=== PATIENT | female | born 1955 | race Caucasian/White ===

== ENCOUNTER → 2016-06-07 | Outpatient (CLI) | payer MEDICARE, OTHER ==
--- NOTE | 2016-06-11 08:45 | MM ---
Reason for exam: screening (asymptomatic). Last mammogram was performed 1 year ago. History: Patient is postmenopausal and is nulliparous. Family history of breast cancer in grandmother at age 80. Benign US biopsy breast VAD LT of the left breast, August 24, 2014. Benign MG pre op needle loc LT of the left breast, June 24, 2013. Benign excisional biopsy of the right breast, July 11, 1998. Took hormonal contraceptives for 20 years 8 months beginning at age 30. Taking estrogen for 1 year. Taking progesterone for 1 year. Physical Findings: A clinical breast exam by your physician is recommended on an annual basis and results should be correlated with mammographic findings. MG Screening Mammo w CAD Bilateral CC, MLO, and XCCL view(s) were taken. Prior study comparison: June 07, 2015, bilateral MG screening mammo w CAD. There are scattered fibroglandular densities. Previous mammotome biopsy within the right breast. No significant changes when compared with prior studies. ASSESSMENT: Benign, BI-RAD 2 RECOMMENDATION: Routine screening mammogram of both breasts in 1 year.
== END | disposition home or self-care (01) ==
LOC: RADMAMWWP 10:17
PROVIDERS: ATTEND Family Medicine
DX: Z12.31 Encounter for screening mammogram for malignant neoplasm of breast (principal)

== ENCOUNTER → 2017-08-01 | Outpatient (CLI) | payer MEDICARE, OTHER ==
--- NOTE | 2017-08-05 08:02 | MM ---
Reason for exam: screening (asymptomatic). Last mammogram was performed 1 year and 2 months ago. History: Patient is postmenopausal and is nulliparous. Family history of breast cancer in grandmother at age 80. Benign US biopsy breast VAD LT of the left breast, August 24, 2014. Benign MG pre op needle loc LT of the left breast, June 24, 2013. Benign excisional biopsy of the right breast, July 11, 1998. Took hormonal contraceptives for 20 years 8 months beginning at age 30. Taking estrogen for 1 year. Taking progesterone for 1 year. Physical Findings: A clinical breast exam by your physician is recommended on an annual basis and results should be correlated with mammographic findings. MG 3D Screening Mammo W/Cad Bilateral CC and MLO view(s) were taken. Prior study comparison: June 07, 2016, bilateral MG screening mammo w CAD. June 07, 2015, bilateral MG screening mammo w CAD. The breast tissue is heterogeneously dense. This may lower the sensitivity of mammography. Previous mammotome biopsy in the right breast. No significant changes when compared with prior studies. ASSESSMENT: Benign, BI-RAD 2 RECOMMENDATION: Routine screening mammogram of both breasts in 1 year.
== END | disposition home or self-care (01) ==
LOC: RADMAMWWP 07:56
PROVIDERS: ATTEND Family Medicine
DX: Z12.31 Encounter for screening mammogram for malignant neoplasm of breast (principal)
CPT/HCPCS: 77063; 77067

== ENCOUNTER 2017-12-11 10:54 | Emergency (ER) | payer MEDICARE, OTHER ==
[2017-12-11 11:29] VITALS: BP 102/53; PULSE 76; TEMP 98.5
--- NOTE | 2017-12-11 11:46 | ED ---
General Adult HPI - General Chief complaint: Fever Stated complaint: poss pneumo, sent by [facility] Source: family Mode of arrival: wheelchair Limitations: no limitations - History of Present Illness Initial comments: Dictation was produced using [employer] dictation software. please excuse any grammatical, word or spelling errors. Chief Complaint: 62-year-old female comes from a correction for fever, cough. History of Present Illness: Patient is a 62-year-old female who presents with persistent cough. She completed a 5 day course of azithromycin last week. She presents today with home staff states that she's been coughing persistently. She has been spiking temperatures as well with attempt of 11 yesterday. Patient has a history of cerebral palsy and mental retardation. Patient unable to H med this time secondary to mental status. Patient's care is usually done as obtained from staff. The correction tech does not know the details of her symptoms. They were at an express today when they sent her to emergency room for further workup. [facility] tech says that she has not been drinking fluids recently however will eat when she is given a burger. Unable to obtain ROS either mental status. - Related Data Home Medications Medication Instructions Recorded Confirmed Cholecalciferol [Vitamin D3] 400 unit PO DAILY 06/23/13 12/11/17 Levothyroxine Sodium [Synthroid] 75 mcg PO QAM 06/23/13 12/11/17 QUEtiapine [SEROquel] 100 mg PO BID@0730,1930 06/23/13 12/11/17 Vilazodone HCl [Viibryd] 20 mg PO DAILY 06/23/13 12/11/17 Vitamin B Complex 1 cap PO DAILY@0730 06/23/13 12/11/17 cloNIDine HCL [Catapres] 0.1 mg PO TID@0730,1200,1600 06/23/13 12/11/17 traZODone HCL [Desyrel] 200 mg PO HS@0 06/23/13 12/11/17 Latanoprost/Pf [Latanoprost 0.005% 1 drop BOTH EYES DAILY@1500 12/11/17 12/11/17 Eye Drop] Loratadine [Claritin] 10 mg PO DAILY@1930 12/11/17 12/11/17 Metoprolol Tartrate [Lopressor] 50 mg PO HS 12/11/17 12/11/17 Previous Rx's Medication Instructions Recorded Sulfamethox-Tmp 800-160Mg [Bactrim 1 tab PO Q12HR 14 Days #28 tab 12/11/17 DS 800-160 mg] Allergies Allergy/AdvReac Type Severity Reaction Status Date / Time grass pollen Allergy Unknown Verified 12/11/17 12:09 losartan Allergy Swelling Verified 12/11/17 12:09 Review of Systems ROS Statement: Those systems with pertinent positive or pertinent negative responses have been documented in the HPI. ROS Other: All systems not noted in ROS Statement are negative. Past Medical History Past Medical History: Musculoskeletal Disorder Additional Past Medical History / Comment(s): CEREBRAL PALSY History of Any Multi-Drug Resistant Organisms: None Reported Past Surgical History: Orthopedic Surgery Additional Past Surgical History / Comment(s): FX OF LEFT FEMUR Past Anesthesia/Blood Transfusion Reactions: No Reported Reaction Past Psychological History: Anxiety Smoking Status: Never smoker Past Alcohol Use History: None Reported Past Drug Use History: None Reported General Exam - General Exam Comments Initial Comments: PHYSICAL EXAM: General Impression: Alert, not in acute distress HEENT: Normocephalic atraumatic, extra-ocular movements intact, pupils equal and reactive to light bilaterally, mucous membranes moist. Cardiovascular: Heart regular rate and rhythm, S1&S2 audible, no murmurs, rubs or gallops Chest: Lungs clear to auscultation bilaterally, no rhonchi, no wheeze, no rales Abdomen: Bowel sounds present, abdomen soft, non-tender, non-distended, no organomegaly Musculoskeletal: Pulses present and equal in all extremities, no peripheral edema Neurological: no focal motor or sensory deficits noted Skin: Intact with no visualized rashes Limitations: no limitations Course Vital Signs 12/11/17 12/11/17 11:23 12:12 Temperature 98.5 F Pulse Rate 76 Respiratory 18 16 Rate Blood Pressure 102/53 O2 Sat by Pulse 95 Oximetry Medical Decision Making - Medical Decision Making ED course: 62-year-old female past medical history of mental retardation, cerebral palsy presents with persistent cough after complaining course of azithromycin and steroids. Signs upon arrival are within acceptable limits. Patient is well-appearing.Laboratory evaluation obtained. CBC unremarkable. Metabolic panel is unremarkable. Urinalysis shows findings to suggest urinary tract infection. Urine sent for culture. Repeat vital signs are obtained showing stable measurements. There is some clinical suspicion that patient's symptoms represent pyelonephritis however patient is afebrile here and likely her urine results represent cystitis. Patient is well- appearing and correction staff member says she appears baseline. Patient urine studies were reviewed by myself she has had Morganella in the past that was sensitive to Bactrim. Patient be given a course of Bactrim. - Lab Data Result diagrams: 12/11/17 12:16 12/11/17 12:16 Lab Results 12/11/17 12/11/17 12/11/17 Range/Units 12:16 12:16 12:16 WBC 9.9 (3.8-10.6) k/uL RBC 4.74 (3.80-5.40) m/uL Hgb 15.2 (11.4-16.0) gm/dL Hct 46.2 H (34.0-46.0) % MCV 97.4 (80.0-100.0) fL MCH 32.1 (25.0-35.0) pg MCHC 33.0 (31.0-37.0) g/dL RDW 12.2 (11.5-15.5) % Plt Count 238 (150-450) k/uL Neutrophils % 65 % Lymphocytes % 25 % Monocytes % 5 % Eosinophils % 2 % Basophils % 0 % Neutrophils # 6.5 (1.3-7.7) k/uL Lymphocytes # 2.5 (1.0-4.8) k/uL Monocytes # 0.5 (0-1.0) k/uL Eosinophils # 0.2 (0-0.7) k/uL Basophils # 0.0 (0-0.2) k/uL Sodium 141 (137-145) mmol/L Potassium 4.3 (3.5-5.1) mmol/L Chloride 108 H (98-107) mmol/L Carbon Dioxide 27 (22-30) mmol/L Anion Gap 6 mmol/L BUN 17 (7-17) mg/dL Creatinine 0.50 L (0.52-1.04) mg/dL Est GFR (CKD-EPI)AfAm >90 (>60 ml/min/1.73 sqM) Est GFR (CKD-EPI)NonAf >90 (>60 ml/min/1.73 sqM) Glucose 84 (74-99) mg/dL Plasma Lactic Acid Yordan 1.5 (0.7-2.0) mmol/L Calcium 10.3 H (8.4-10.2) mg/dL Total Bilirubin 0.7 (0.2-1.3) mg/dL AST 25 (14-36) U/L ALT 28 (9-52) U/L Alkaline Phosphatase 84 (38-126) U/L Total Protein 6.5 (6.3-8.2) g/dL Albumin 3.8 (3.5-5.0) g/dL Urine Color Urine Appearance (Clear) Urine pH (5.0-8.0) Ur Specific [place] (1.001-1.035) Urine Protein (Negative) Urine Glucose (UA) (Negative) Urine Ketones (Negative) Urine Blood (Negative) Urine Nitrite (Negative) Urine Bilirubin (Negative) Urine Urobilinogen (<2.0) mg/dL Ur Leukocyte Esterase (Negative) Urine RBC (0-5) /hpf Urine WBC (0-5) /hpf Ur Squamous Epith Cells (0-4) /hpf Urine Bacteria (None) /hpf Urine Mucus (None) /hpf 12/11/17 Range/Units 13:19 WBC (3.8-10.6) k/uL RBC (3.80-5.40) m/uL Hgb (11.4-16.0) gm/dL Hct (34.0-46.0) % MCV (80.0-100.0) fL MCH (25.0-35.0) pg MCHC (31.0-37.0) g/dL RDW (11.5-15.5) % Plt Count (150-450) k/uL Neutrophils % % Lymphocytes % % Monocytes % % Eosinophils % % Basophils % % Neutrophils # (1.3-7.7) k/uL Lymphocytes # (1.0-4.8) k/uL Monocytes # (0-1.0) k/uL Eosinophils # (0-0.7) k/uL Basophils # (0-0.2) k/uL Sodium (137-145) mmol/L Potassium (3.5-5.1) mmol/L Chloride (98-107) mmol/L Carbon Dioxide (22-30) mmol/L Anion Gap mmol/L BUN (7-17) mg/dL Creatinine (0.52-1.04) mg/dL Est GFR (CKD-EPI)AfAm (>60 ml/min/1.73 sqM) Est GFR (CKD-EPI)NonAf (>60 ml/min/1.73 sqM) Glucose (74-99) mg/dL Plasma Lactic Acid Yordan (0.7-2.0) mmol/L Calcium (8.4-10.2) mg/dL Total Bilirubin (0.2-1.3) mg/dL AST (14-36) U/L ALT (9-52) U/L Alkaline Phosphatase (38-126) U/L Total Protein (6.3-8.2) g/dL Albumin (3.5-5.0) g/dL Urine Color Yellow Urine Appearance Clear (Clear) Urine pH 6.5 (5.0-8.0) Ur Specific [place] 1.021 (1.001-1.035) Urine Protein Negative (Negative) Urine Glucose (UA) Negative (Negative) Urine Ketones Negative (Negative) Urine Blood Negative (Negative) Urine Nitrite Negative (Negative) Urine Bilirubin Negative (Negative) Urine Urobilinogen <2.0 (<2.0) mg/dL Ur Leukocyte Esterase Large H (Negative) Urine RBC 1 (0-5) /hpf Urine WBC 17 H (0-5) /hpf Ur Squamous Epith Cells 1 (0-4) /hpf Urine Bacteria Occasional H (None) /hpf Urine Mucus Rare H (None) /hpf Disposition Clinical Impression: UTI (urinary tract infection) Disposition: HOME SELF-CARE Condition: Good Instructions: Fever in Adults (ED) Prescriptions: Sulfamethox-Tmp 800-160Mg [Bactrim DS 800-160 mg] 1 tab PO Q12HR 14 Days #28 tab Is patient prescribed a controlled substance at d/c from ED?: No Referrals: Lawrence Grier DO [Primary Care Provider] - 1-2 days Time of Disposition: 13:51
[2017-12-11 12:18] VITALS: RESP 16
[2017-12-11 12:42] LABS: Basophils % (A) 0 %; Eosinophils # (A) 0.2 k/uL (0-0.7); Eosinophils % (A) 2 %; HCT 46.2 % (34.0-46.0); HGB 15.2 gm/dL (11.4-16.0); Lymphocytes # (A) 2.5 k/uL (1.0-4.8); Lymphocytes % (A) 25 %; MCH 32.1 pg (25.0-35.0); MCV 97.4 fL (80.0-100.0); Mean Platelet Volume 6.8; Monocytes # (A) 0.5 k/uL (0-1.0); Monocytes % (A) 5 %; Neutrophils # (A) 6.5 k/uL (1.3-7.7); Neutrophils % (A) 65 %; Platelet Count 238 k/uL (150-450); RBC 4.74 m/uL (3.80-5.40); RDW 12.2 % (11.5-15.5); WBC 9.9 k/uL (3.8-10.6)
[2017-12-11 12:52] LABS: ALT 28 U/L (9-52); AST 25 U/L (14-36); Albumin 3.8 g/dL (3.5-5.0); Alkaline Phosphatase 84 U/L (38-126); Anion Gap 6 mmol/L; Blood Urea Nitrogen 17 mg/dL (7-17); Calcium 10.3 mg/dL (8.4-10.2); Carbon Dioxide 27 mmol/L (22-30); Chloride 108 mmol/L (98-107); Glucose 84 mg/dL (74-99); Potassium 4.3 mmol/L (3.5-5.1); Sodium 141 mmol/L (137-145); Total Bilirubin 0.7 mg/dL (0.2-1.3); Total Protein 6.5 g/dL (6.3-8.2)
--- NOTE | 2017-12-11 13:04 | XR ---
EXAMINATION TYPE: XR chest 2V DATE OF EXAM: 12/11/2017 COMPARISON: 05/29/2014 HISTORY: Cough, congestion, and fever TECHNIQUE: Frontal and lateral views of the chest are obtained. FINDINGS: There is chronic right hemidiaphragm elevation and low lung volumes. Cardia mediastinal si lhouette is partially obscured as seen on the prior. Surgical clips are noted within the right upper quadrant. No new focal consolidation, pleural effusion or pneumothorax. There is osseous demineraliza tion of the thoracic spine and exaggerated thoracic spine kyphosis. IMPRESSION: Chronic right hemidiaphragm elevation and low lung volumes with no acute cardiac pulmona ry process.
[2017-12-11 13:43] LABS: Appearance,Urine Clear (Clear); Bacteria,Urine Occasional /hpf; Bilirubin,Urine Negative (Negative); Blood,Urine Negative (Negative); Color,Urine Yellow; Glucose,Urine (UA) Negative (Negative); Ketones,Urine Negative (Negative); Leukocyte Esterase,Urine Large (Negative); Mucus,Urine Rare /hpf; Nitrite,Urine Negative (Negative); PH, Urine 6.5 (5.0-8.0); Protein,Urine Negative (Negative); RBC,Urine 1 /hpf (0-5); Specific Gravity,Urine 1.021 (1.001-1.035); Squamous Epithelial Cell,Urine 1 /hpf (0-4); Urobilinogen,Urine <2.0 mg/dL (<2.0); WBC,Urine 17 /hpf (0-5)
== END 2017-12-11 14:10 | disposition home or self-care (01) ==
LOC: EC 10:54
DX: N39.0 Urinary tract infection, site not specified (principal); R05 Cough; F41.9 Anxiety disorder, unspecified; Z79.899 Other long term (current) drug therapy; Z88.8 Allergy status to other drugs, medicaments and biological substances; Z91.048 Other nonmedicinal substance allergy status
CPT/HCPCS: 36415; 71046; 80053; 81001; 83605; 85025; 87086; 99283

== ENCOUNTER → 2018-02-14 | Outpatient (CLI) | payer MEDICARE, OTHER ==
--- NOTE | 2018-02-14 13:07 | US ---
EXAMINATION TYPE: US venous doppler duplex LE LT DATE OF EXAM: 02/14/2018 12:31 PM COMPARISON: NONE CLINICAL HISTORY: R60.0. edema left leg for 1 week SIDE PERFORMED: left TECHNIQUE: The lower extremity deep venous system is examined utilizing real time linear array sonog tana with graded compression, doppler sonography and color-flow sonography. VESSELS IMAGED: External Iliac Vein (EIV) Common Femoral Vein Deep Femoral Vein Greater Saphenous Vein * Femoral Vein Popliteal Vein Small Saphenous Vein * Proximal Calf Veins (* superficial vessels) Left Leg: Technical limitations, patient unable to hold still, constantly moaning. No evidence of DVT as visualized, limited evaluation of popliteal veins due to edema IMPRESSION: 1. Examination is limited due to patient's level of cooperation. 2. No obvious deep venous thrombosis evident within the left lower extremity ultrasound.
== END ==
LOC: WWCWWP 12:06
PROVIDERS: ATTEND Podiatrist Foot & Ankle Surgery
DX: R60.0 Localized edema (principal)

== ENCOUNTER → 2018-08-11 | Outpatient (CLI) | payer MEDICARE, OTHER ==
--- NOTE | 2018-08-12 10:55 | MM ---
Reason for exam: screening (asymptomatic). Last mammogram was performed 1 year ago. History: Patient is postmenopausal and is nulliparous. Family history of breast cancer in grandmother at age 80. Benign US biopsy breast VAD LT of the left breast, August 24, 2014. Benign MG pre op needle loc LT of the left breast, June 24, 2013. Benign excisional biopsy of the right breast, July 11, 1998. Took hormonal contraceptives for 20 years 8 months beginning at age 30. Taking estrogen for 1 year. Taking progesterone for 1 year. Physical Findings: A clinical breast exam by your physician is recommended on an annual basis and results should be correlated with mammographic findings. MG Screening Mammo w CAD Bilateral CC and MLO view(s) were taken. Prior study comparison: August 01, 2017, bilateral MG 3d screening mammo w/cad. June 07, 2016, bilateral MG screening mammo w CAD. The breast tissue is heterogeneously dense. This may lower the sensitivity of mammography. There is no discrete abnormality. No significant changes when compared with prior studies. ASSESSMENT: Negative, BI-RAD 1 RECOMMENDATION: Routine screening mammogram of both breasts in 1 year.
== END | disposition home or self-care (01) ==
LOC: RADMAMWWP 09:20
PROVIDERS: ATTEND Family Medicine
DX: Z12.31 Encounter for screening mammogram for malignant neoplasm of breast (principal)
CPT/HCPCS: 77067

== ENCOUNTER → 2018-09-17 | Outpatient (CLI) | payer MEDICARE, OTHER ==
--- NOTE | 2018-09-17 10:15 | XR ---
EXAMINATION TYPE: XR wrist complete RT DATE OF EXAM: 09/17/2018 CLINICAL HISTORY: Right wrist pain TECHNIQUE: Frontal, lateral and oblique images of the right wrist are obtained. Scaphoid view was al so obtained. COMPARISON: None FINDINGS: There is no acute fracture/dislocation evident in the right wrist. Negative ulnar variance is incidentally noted. The joint spaces in the right wrist appear aligned however there is very mini mal joint space narrowing and radial subluxation of the first carpometacarpal joint that is seen on a single view. No sachin dislocation.. The overlying soft tissue appears unremarkable. IMPRESSION: 1. No acute fracture or dislocation in the right wrist. 2. Transient subluxation of the first carpometacarpal joint is positional seen on a single view only. Very mild degenerative changes are seen of the first carpometacarpal joint.
== END | disposition home or self-care (01) ==
LOC: RADXRMAIN 09:38
PROVIDERS: ATTEND Family Medicine
DX: S63.041A Subluxation of carpometacarpal joint of right thumb, initial encounter (principal)

== ENCOUNTER → 2021-01-11 | Outpatient (CLI) | payer MEDICARE, OTHER | END | disposition home or self-care (01) | LOC: LABWHC1 12:43 | PROVIDERS: ATTEND Family Medicine | DX: Z03.818 Encounter for observation for suspected exposure to other biological agents ruled out (principal) | CPT/HCPCS: U0003; C9803 ==

== ENCOUNTER → 2021-08-08 | Outpatient (CLI) | payer MEDICARE, OTHER ==
--- NOTE | 2021-08-08 14:25 | XR ---
EXAMINATION TYPE: XR finger LT DATE OF EXAM: 08/08/2021 COMPARISON: NONE HISTORY: Pain TECHNIQUE: 4 views are submitted. FINDINGS: The osseous structures are intact. The joint spaces are preserved and there is no acute fracture or dislocation. Suspect accessory ossicle carpal metacarpal junction. Mild loss of demineralization mohinder ng the volar surface at the base of the distal phalanx. IMPRESSION: 1. No definite acute fracture or dislocation if symptoms persist, follow-up study in 7 to 10 days wo uld be suggested. There is mild loss of mineralization along the volar plate distal phalanx first dig it. Finding nonspecific. Consider follow bone scan if this is the area of clinical concern.
--- NOTE | 2021-08-08 14:28 | XR ---
EXAMINATION TYPE: XR wrist complete LT DATE OF EXAM: 08/08/2021 COMPARISON: NONE HISTORY: Swelling TECHNIQUE: Four views submitted. FINDINGS: The osseous structures are intact. The joint spaces are preserved and there is no acute fracture or dislocation. Well-corticated density adjacent to the first carpal metacarpal joint appears chronic m ay be related to accessory ossicle or remote trauma IMPRESSION: 1. No definite acute fracture or dislocation if symptoms persist, follow-up study in 7 to 10 days wo uld be suggested
== END | disposition home or self-care (01) ==
LOC: RADXRMAIN 09:51
PROVIDERS: ATTEND Family Medicine
DX: M25.532 Pain in left wrist (principal); M79.645 Pain in left finger(s)